=== PATIENT | male | born 1950 | race Caucasian/White ===

== ENCOUNTER 2017-09-28 08:00 | Outpatient (CLI) | payer MEDICARE, BC | END 2017-09-28 08:01 | disposition home or self-care (01) | LOC: LAB.R 08:00 | PROVIDERS: ATTEND Physician Assistant Medical | DX: F41.9 Anxiety disorder, unspecified (principal) | CPT/HCPCS: 84443 ==

== ENCOUNTER 2017-12-01 11:31 | Outpatient (CLI) | payer MEDICARE, BC | END 2017-12-01 11:32 | disposition home or self-care (01) | LOC: SC 11:31 | PROVIDERS: ATTEND Internal Medicine Pulmonary Disease | DX: G47.30 Sleep apnea, unspecified (principal); G47.9 Sleep disorder, unspecified; G47.00 Insomnia, unspecified | CPT/HCPCS: 99203; G0463; 99212 ==

== ENCOUNTER 2018-04-17 19:24 | Outpatient (CLI) | payer MEDICARE, BC | END 2018-04-17 19:25 | disposition home or self-care (01) | LOC: SC 19:24 | PROVIDERS: ATTEND Internal Medicine Pulmonary Disease | DX: G47.33 Obstructive sleep apnea (adult) (pediatric) (principal); G47.61 Periodic limb movement disorder | CPT/HCPCS: 95810 ==

== ENCOUNTER 2018-05-25 09:08 | Outpatient (CLI) | payer MEDICARE, BC | END 2018-05-25 09:09 | disposition home or self-care (01) | LOC: SC 09:08 | PROVIDERS: ATTEND Nurse Practitioner Family | DX: G47.33 Obstructive sleep apnea (adult) (pediatric) (principal); G47.61 Periodic limb movement disorder | CPT/HCPCS: 99214; G0463; 99212 ==

== ENCOUNTER 2018-07-27 08:34 | Outpatient (CLI) | payer MEDICARE, BC | END 2018-07-27 08:35 | disposition home or self-care (01) | LOC: SC 08:34 | PROVIDERS: ATTEND Nurse Practitioner Family | DX: G47.33 Obstructive sleep apnea (adult) (pediatric) (principal) | CPT/HCPCS: 99213; G0463; 99212 ==

== ENCOUNTER 2018-08-26 06:58 | Day surgery (SDC) | payer MEDICARE, BC, OTHER ==
[~2018-08-26 06:58] MED LIST: LACTATED RINGERS 1,000 ML IV ONE
[2018-08-26] MEDS ORDERED: fentaNYL 250 MCG/5 ML VIAL IVP ONE (08:02)
[2018-08-26] MEDS ORDERED: MIDAZOLAM 2 MG/2 ML VIAL IVP ONE (08:02)
[2018-08-26 08:54] VITALS: BP 116/64
== END 2018-08-26 06:59 | disposition home or self-care (01) ==
LOC: SDS 06:58
PROVIDERS: ATTEND Internal Medicine Gastroenterology
PROC: 0DBL8ZZ Excision of Transverse Colon, Via Natural or Artificial Opening Endoscopic (ICD-10-PCS; 2018-08-26)
PROC: 0DBN8ZZ Excision of Sigmoid Colon, Via Natural or Artificial Opening Endoscopic (ICD-10-PCS; 2018-08-26)
PROC: 0DBP8ZZ Excision of Rectum, Via Natural or Artificial Opening Endoscopic (ICD-10-PCS; principal; 2018-08-26 08:15)
DX: Z12.11 Encounter for screening for malignant neoplasm of colon (principal); D12.3 Benign neoplasm of transverse colon; K63.5 Polyp of colon; K62.1 Rectal polyp; K57.30 Diverticulosis of large intestine without perforation or abscess without bleeding; Z72.0 Tobacco use; G47.30 Sleep apnea, unspecified
CPT/HCPCS: 45380; J3010; J7120

== ENCOUNTER 2019-12-06 08:53 | Outpatient (CLI) | payer MEDICARE, BC, OTHER | END 2019-12-06 08:54 | disposition home or self-care (01) | LOC: DI 08:53 | PROVIDERS: ATTEND Nurse Practitioner | DX: R00.2 Palpitations (principal) | CPT/HCPCS: 93306 ==

== ENCOUNTER 2020-05-21 14:44 | Outpatient (CLI) | payer MEDICARE, BC, OTHER ==
--- NOTE | 2020-05-21 15:46 | SLEEP CARE CONSULTATION ---
Information from patient questionnaire entered by Crystal Tinoco. I have reviewed and concur with the information entered by Crystal Tinoco. This document represents the service I personally performed and the decisions made by me, Fatemeh Iglesias, RN, MSN, REMEDIAL TEACHER. History of Present Illness Service Date and Time: 05/21/2020 1444 Previous diagnosis: Mild, Obstructive Sleep Apnea-Hypopnea Syndrome AHI: 6.9 Reason for follow up: annual (last seen 07-27-18 for positional therapy) Prior sleep studies: Yes Year and Where: 2017 [facility] Type of Sleep Study: Polysomnography HPI additional information: Reviewed last note. Patient was doing well with positional therapy with good response from treatment in reduction of sleepiness symptoms and more energy during the day. One week ago , he started having low energy and needed to bring a chair out to garden to rest as before positional therapy. March 02, 2020 he noted an irregular heart rhythm again. He has had these episodes for past 6.5 years but no treatment was indicated. Since February, these events have been more frequent and totaling 10 events ranging from 2-5 hours. He has followed up with his new PCP Geraldine MARK. He has associated these events to decreased physical activity golfing, ingestion of alcohol and smoking. Especially he noted this with smoking and has since quit March 09. He started power walks in March [address] of golf as clubs closed due to pandemic. He has reduced his alcohol intake to 2 beers a day from 3 beers and a glass of wine. He has noted that if ingests alcohol after 6 pm it will affect his sleep by fragmentation He has not been waking refreshed from sleep and has had less energy for the past month and thus made appointment here as not better. The last few days he has gone to bed an hour earlier 9:30 am and maintained his regular wake time of 5:30-6. He feels his quality of sleep is better also especially after alcohol is reduced to 2 beers. He has also noted a muscle response of mild twitching in evening if ingests more than his 2 beers otherwise does not happen. He has continued his positional therapy with attila pack with 12 inch soft ball in back and this works well. Initially he wondered if he should consider use of A CPAP due to continuing symptoms but now is pleased with sleep and energy since reduction of alcohol and cessation of smoking especially since started to go to bed earlier . Subjective Initial [place] Sleepiness Scale score: 1 Allergies and Home Medications Home medication list reviewed: Yes (added ASA 325mg daily) Allergy and home medication list: atorvastatin daily Review of Systems Review of systems same as previous: No (more frequent episodes of atrial fibrillation) Physical Exam Blood Pressure: 160/80 (monitors at home - general range 130/80) Cuff size: long Heart Rate: 66 O2 Saturation: 98 Height: 5 ft 8 in Weight: 153 lb 12.8 oz Body Mass Index: 23.3 BMI Classification: Healthy weight Impression and Plan 1. Obstructive Sleep Apnea-Hypopnea Syndrome, mild, treated with positional management therapy with good benefit noted in reduction of sleepiness symptoms with more energy during the day. As noted in HPI, the patient started having an increase of sleepiness symptoms, that was sustained for a about a month. After changing several lifestyle habits to reduce occurrence of paroxymal atrial fibrillation by history, he found that reducing alcohol ingestion improved sleep quality. In addition going to bed earlier by one hour also improved his refre shment of sleep. I again reviewed other options of treatment for apnea including oral appliance and CPAP. At this time the patient would like to stay with positional therapy. Questions answered about [employer] sleep tracker. Patient's apnea severity and rationale for treatment to reduce apnea, improve sleep quality and reduce cardiovascular and cerebrovascular events was reviewed. 2. Elevated blood pressure today, 160/80. Patient states it is not uncommon to be elevated in this range at medical visit. He showed me his usual Blood pressure ranges on his graphs brought with him. He is to retake BP when home and rested and contact PCP if remains elevated with rationale discussed. patient agreed with plan. * Continue positional management therapy * maintain weight * Avoid alcohol consumption near bedtime * Contact PCP if blood pressure remains elevated. * Return for follow up if symptoms increase. Visit Type: In Office Time Spent with Patient (minutes): 30 Provider Statement: I spent 100% of the Face to Face Visit with the patient with greater than 50% spent counseling the patient and coordination of care.
[2020-05-21 16:35] VITALS: BP 160/80
== END 2020-05-21 14:45 | disposition home or self-care (01) ==
LOC: SC 14:44
PROVIDERS: ATTEND Nurse Practitioner Family
DX: G47.33 Obstructive sleep apnea (adult) (pediatric) (principal); Z87.891 Personal history of nicotine dependence; R03.0 Elevated blood-pressure reading, without diagnosis of hypertension; Z72.89 Other problems related to lifestyle
CPT/HCPCS: 99214; G0463; 99212

== ENCOUNTER 2020-07-19 08:00 | Outpatient (CLI) | payer MEDICARE, BC, OTHER | END 2020-07-19 23:59 | disposition home or self-care (01) | LOC: LAB.WCP 08:00 | PROVIDERS: ATTEND Family Medicine | DX: R19.4 Change in bowel habit (principal) | CPT/HCPCS: 36415; 83516 ==

== ENCOUNTER 2020-07-26 09:11 | Outpatient (CLI) | payer MEDICARE, BC, OTHER ==
--- NOTE | 2020-07-26 10:10 | SLEEP CARE CONSULTATION ---
Information from patient questionnaire entered by Yael Durham. I have reviewed and concur with the information entered by Yael Durham. This document represents the service I personally performed and the decisions made by me, Fatemeh Iglesias, RN, MSN, MAJOR LEAGUE BASEBALL PLAYER. History of Present Illness Service Date and Time: 07/26/2020910 Previous diagnosis: Mild, Obstructive Sleep Apnea-Hypopnea Syndrome AHI: 6.9 (in 2018) Reason for follow up: one month (positional therapy / sleep diaries for insomnia) Prior sleep studies: Yes Year and Where: 2018 - [facility] HPI additional information: Reviewed past visit note and patient complaints and goals for this visit. Patient is using positional therapy to control his apnea but has been having insomnia. Methods to reduce insomnia were discussed and 1 month sleep diaries completed. Patient took off the smart watch for sleep and stopped looking at sleep kristyn. He completed the sleep diaries. He also noted RLS symptoms increased with increase in temperature heat. Before that he only noted RLS symptoms if played golf. He felt it was not RLS but itchiness from grass exposed to while golfing. He golfs 3 days a week. He does other exercise on alternate days. He describes RLS as tenseness of leg muscles from below and above knee down the leg. He also feels pins and needles tingling. These symptoms would start about an hour before bedtime and continue through the night. Movement of walking around house or yoga would reduce symptoms temporarily. Symptoms were described as severe and reduced to moderate through the night. This was daily daily for about a month starting shortly after last seen and then severity reduced with reduction of temperature of weather. Now symptoms are minimal but continue nightly. He now feels the symptoms manageable for sleep efficiency. He also states that leg symptoms are less when he wears long pants when golfing. However, symptoms are present whether he golfs or not. He continues to use positional therapy and continues to be more rested with treatment. He plans on continuing therapy. He does not want to go forward with CPAP. He may think about an oral appliance as a treatment if legs continue to bother him as when severe leg symptoms it is hard to maintain positional therapy. He wants to talk to his dentist first. Sleep Study - Results Prior sleep studies: Yes Year and Where: 2018 - [facility] Subjective Initial [place] Sleepiness Scale score: 1 (in 2018) Current [place] Sleepiness Scale score: 2 Allergies and Home Medications Known drug allergies: No Home medication list reviewed: Yes Allergy and home medication list: atorvastatin 20mg HS aspirin 325mg daily ( paroxymal atrial fibrillation) Review of Systems Review of systems same as previous: Yes Physical Exam Blood Pressure: 130/64 Cuff size: regular Heart Rate: 66 O2 Saturation: 98 Height: 5 ft 8 in Weight: 156 lb (stable ) Body Mass Index: 23.7 BMI Classification: Healthy weight Impression and Plan 1. Obstructive Sleep Apnea-Hypopnea Syndrome, mild, with reported daily use of positional therapy for management of his apnea. He also reports that he is more rested overall with this treatment. However, he is now considering oral appliance for management and wants to check with his dentist first. He already has the [facility] non PAP treatment patient education pamphlet. A prescription is needed to start process but patient wants to defer until he talks with his dentist and will contact this office with his goals. Patient advised to check insurance to see if oral appliance is covered. Some dentists do not take Medicare. I will have patient follow up in 3 months to check effectiveness of treatment. If reduction of symptoms and comfortable with treatment, a polysomnography will be ordered using the oral appliance to check efficacy of treatment. Patient's apnea severity and rationale for treatment to reduce apnea, improve sleep quality and reduce cardiovascular and cerebrovascular events was reviewed. 2. Insomnia, that now appears to be related to leg discomfort of itching and pins and needles exacerbated by hot weather and golf. Symptoms have been manageable the past month with cooler weather. It is unclear if this could be RLS or other condition such as allergies to grass or if he is having myalgias from his statin medication. Thus I will have him follow up with his PCP for further evaluation. If thought due to RLS, then iron deficiency anemia and ferritin level need to be evaluted . He can also consider taking a non sedating antihistamine before golf to see if symptoms better. 3. Possible Restless Leg Syndrome (RLS): as exhibited by an urge to move the legs and generally involves symptoms of uncomfortable and unpleasant sensations. Symptoms usually begin or worsen with inactivity or periods of rest such as sitting or lying down. These symptoms can be partially or completely relieved with movement such as stretching, walking or other movement. Generally they occur late in the evening or at bedtime. Sometimes the urge to move legs can be without discomfort or involve the arms and other parts of the body. Symptoms can cause patient concern and difficulty initiating sleep affecting daytime functioning. RLS is a sensorimotor disorder that can be hereditary and is often associated with PLMS periodic limb movement of sleep. It can also be secondary to mild iron deficiency (serum ferritin less than 50mcg - 75mcg/L) and magnesium deficiencies. Other medical conditions associated with RLS are narcolepsy,migraine headaches, chronic obstructive pulmonary disease, Parkinson disease, multiple sclerosis, peripheral neuropathy, obstructive sleep apnea, diabetes mellitus, fibromyalgia, rheumatoid arthritis, nocturnal eating, obesity, thyroid disease and heart disease and renal failure as well as mood disorders and ADHD. Also, medications such as most antidepressants with exception of bupropion, some centrally active dopamine receptor antagonists, sedating antihistamines such as Benadryl can precipitate or aggravate this disorder. Other factors that can increase symptoms are sleep deprivation, caffeine, nicotine and alcohol use. I recommend ruling out these conditions if not already done. [facility] Restless Leg syndrome pamphlet given and reviewed. * Continue positional therapy * Check with dentist about oral appliance * Contact this office if needs RX . * Follow up with PCP for further evaluation of leg symptoms as described above * Call this office if any problems using CPAP * Return for follow up in 1 year in no oral appliance , 3 months if oral appliance used, or sooner if concerns arise Visit Type: In Office Time Spent with Patient (minutes): 45 Provider Statement: I spent 100% of the Face to Face Visit with the patient with greater than 50% spent counseling the patient and coordination of care.
[2020-07-26 10:11] VITALS: BP 130/64
== END 2020-07-26 09:12 | disposition home or self-care (01) ==
LOC: SC 09:11
PROVIDERS: ATTEND Nurse Practitioner Family
DX: G47.33 Obstructive sleep apnea (adult) (pediatric) (principal); G47.00 Insomnia, unspecified; G25.81 Restless legs syndrome
CPT/HCPCS: 99215; G0463; 99212